=== PATIENT | male | born 1990 | race Caucasian/White ===

== ENCOUNTER 2021-05-17 08:18 | Outpatient (CLI) | payer MEDICAID, SELFPAY ==
[~2021-05-17] VITALS: Ht 167.6 cm; Wt 59.0 kg
== END 2021-05-17 12:00 | disposition home or self-care (01) ==
LOC: SLB 08:18 → EDSTATUS 05-21 09:15
PROVIDERS: ATTEND Internal Medicine Gastroenterology
DX: U07.1 COVID-19 (principal); Z01.812 Encounter for preprocedural laboratory examination; R10.9 Unspecified abdominal pain
CPT/HCPCS: U0003